=== PATIENT | male | born 1950 | race Caucasian/White ===

== ENCOUNTER → 2020-11-12 | Outpatient (CLI) | payer MEDICARE, OTHER ==
[~2020-11-12] MED LIST: ALDACTONE 25MG25 MG PO; CEFUROXIME500 MG PO; CETIRIZINE HCL10 MG PO; CLINDAMYCIN HC300 MG PO; COREG6.25 MG PO; ELIQUIS5 MG PO; ENTRESTO 97 MG1 EACH PO; ENTRESTO PO; FISH OIL 1,0001 EAC4 PO; FISH OIL 1,0001 EACH PO; FLOMAX0.4 MG PO; FLONASE 0.05% N16 GM; FLOVENT DISKUS50 MCG INH; FUROSEMIDE20 MG PO; HYDROCODON-ACE1 EAC4 PO; LEVOFLOXACIN500 MG PO; MULTI FOR HIM1 EACH PO; ONCE DAILY1 EACH PO; SIMVASTATIN40 MG PO; SINGULAIR10 MG PO; SOTALOL80 MG PO; SPIRONOLACTONE25 MG PO; VITAMIN D 40400 UNIT PO; VITAMIN D2000 UNI1 PO; VITAMIN D22000 UNIT PO; ZYRTEC10 M3 PO
== END ==
LOC: HEART 5 13:16
DX: Z01.810 Encounter for preprocedural cardiovascular examination (principal); I48.91 Unspecified atrial fibrillation; I42.0 Dilated cardiomyopathy; R06.02 Shortness of breath; I11.0 Hypertensive heart disease with heart failure; I50.22 Chronic systolic (congestive) heart failure
CPT/HCPCS: 93306

== ENCOUNTER → 2020-11-21 | Outpatient (CLI) | payer MEDICARE ==
[2020-11-21 08:43] LABS: HEMOGLOBIN 15.7 gm/dl (14.0-17.5); RED BLOOD COUNT 5.18 M/UL (4.20-5.50); WHITE BLOOD COUNT 7.8 K/UL (4.5-11.0)
[2020-11-21 09:40] LABS: BUN/CREATININE RATIO 17 (0-10)
== END ==
LOC: LAB 07:48
PROVIDERS: Internal Medicine Cardiovascular Disease
DX: Z01.818 Encounter for other preprocedural examination (principal); R00.2 Palpitations; R06.02 Shortness of breath; I48.91 Unspecified atrial fibrillation; I50.22 Chronic systolic (congestive) heart failure
CPT/HCPCS: 71046; 80048; 85025

== ENCOUNTER → 2020-11-23 | Outpatient (CLI) | payer MEDICARE | LOC: CATH 07:06 | DX: Z45.02 Encounter for adjustment and management of automatic implantable cardiac defibrillator (principal); I11.0 Hypertensive heart disease with heart failure; I50.22 Chronic systolic (congestive) heart failure; I42.0 Dilated cardiomyopathy; I42.8 Other cardiomyopathies; I48.91 Unspecified atrial fibrillation; Z79.899 Other long term (current) drug therapy | CPT/HCPCS: 93641; 99152; 99153; C1882; J2250; J3010; J3370; J7040; J7050 ==